=== PATIENT | female | born 1935 | race African-American/Black ===

== ENCOUNTER 2018-12-31 12:17 | Emergency (ER) | payer MEDICARE, OTHER, MEDICAID ==
[~2018-12-31] VITALS: Ht 152.4 cm; Wt 78.9 kg
[~2018-12-31 12:17] MED LIST: ACET500C5 PO
[2018-12-31 12:49] VITALS: Ht 152.4 cm; Wt 78.9 kg
[2018-12-31] MEDS ORDERED: ACETAMINOPHEN 325 MG TAB PO ONE (15:30)
== END 2018-12-31 17:39 | disposition home or self-care (01) ==
LOC: FTE 12:17
DX: M25.562 Pain in left knee (principal)
CPT/HCPCS: 73562